=== PATIENT | male | born 1965 | race Caucasian/White ===

== ENCOUNTER 2019-11-27 06:57 | Day surgery (SDC) | payer OTHER ==
[~2019-11-27] VITALS: Ht 165.1 cm; Wt 82.1 kg
[~2019-11-27 06:57] MED LIST: LIPI20TA PO; NS 1,000 ML IV ONE
[2019-11-27] MEDS ORDERED: SIMETHICONE 40MG/0.6ML DROPS 30ML As Ordered ONE (07:09)
[2019-11-27] MEDS ORDERED: propofoL 500 MG/50 ML VIAL As Ordered ONE (07:39)
[2019-11-27] MEDS ORDERED: LIDOCAINE 2% INJ 100 MG/5 ML SDV (FOR ANES.) As Ordered ONE (07:39)
[2019-11-27] MEDS ORDERED: fentaNYL 100 MCG/2 ML INJECTION (J3010) As Ordered ONE (07:39)
--- NOTE | 2019-11-27 07:55 | ROOR ---
Patient Name: Kaden Brownlee Procedure Date: 11/27/2019 7:39 AM Date of : 1965 Age: 54 Room: [facility] Gender: Male Note Status: Finalized Procedure: Upper Endoscopy + Biopsies Indications: Iron deficiency anemia, Unexplained iron deficiency anemia Providers: Joshua Hooper MD Referring MD: WINNIE ZHOU MD Requesting Provider: Medicines: Monitored Anesthesia Care Complications: No immediate complications. Procedure: Pre-Anesthesia Assessment: - The heart rate, respiratory rate, oxygen saturations, blood pressure, adequacy of pulmonary ventilation, and response to care were monitored throughout the procedure. The Endoscope was introduced through the mouth, and advanced to the second part of duodenum. The upper GI endoscopy was accomplished without difficulty. The patient tolerated the procedure well. Findings: The Z-line was variable and was found 40 cm from the incisors. Multiple biopsies were obtained with cold forceps for evaluation to rule out Joseph's Esophagus randomly at the gastroesophageal junction. A small hiatal hernia was present. No other significant abnormalities were identified in a careful examination of the stomach. Biopsies were taken with a cold forceps in the gastric antrum for Helicobacter pylori testing. The exam of the duodenum was otherwise normal. Biopsies for histology were taken with a cold forceps in the first portion of the duodenum for evaluation of celiac disease. The exam was otherwise without abnormality. Impression: - Z-line variable, 40 cm from the incisors. - Small hiatal hernia. - The examination was otherwise normal. - Multiple biopsies were obtained at the gastroesophageal junction. - Biopsies were taken with a cold forceps for Helicobacter pylori testing. - Biopsies were taken with a cold forceps for evaluation of celiac disease. - The examination was otherwise normal. Recommendation: - Patient has a contact number available for emergencies. The signs and symptoms of potential delayed complications were discussed with the patient. Return to normal activities tomorrow. Written discharge instructions were provided to the patient. - Resume previous diet. - Discharge patient to home. - Continue present medications. - Await pathology results. - Telephone GI clinic for pathology results in 1 week. - Return to referring physician. - The findings and recommendations were discussed with the patient's family. Joshua Hooper MD Joshua Hooper MD 11/27/2019 7:54:38 AM Electronically signed by Joshua Hooper MD Number of Addenda: 0 Note Initiated On: 11/27/2019 7:39 AM Estimated Blood Loss: Estimated blood loss: none.
--- NOTE | 2019-11-27 08:07 | ROOR ---
Patient Name: Kaden Brownlee Procedure Date: 11/27/2019 7:40 AM Date of : 1965 Age: 54 Room: [facility] Gender: Male Note Status: Finalized Procedure: Total Colonoscopy to Cecum Indications: Iron deficiency anemia Providers: Joshua Hooper MD Referring MD: WINNIE ZHOU MD Requesting Provider: Medicines: Monitored Anesthesia Care Complications: No immediate complications. Procedure: Pre-Anesthesia Assessment: - The heart rate, respiratory rate, oxygen saturations, blood pressure, adequacy of pulmonary ventilation, and response to care were monitored throughout the procedure. The Colonoscope was introduced through the anus and advanced to the cecum, identified by appendiceal orifice and ileocecal valve. The colonoscopy was performed without difficulty. The patient tolerated the procedure well. The quality of the bowel preparation was excellent. Findings: The perianal and digital rectal examinations were normal. Non-bleeding internal hemorrhoids were found during retroflexion. The hemorrhoids were Grade I (internal hemorrhoids that do not prolapse). No other significant abnormalities were identified in a careful examination of the remainder of the colon. The exam was otherwise without abnormality on direct and retroflexion views. Impression: - Non-bleeding internal hemorrhoids. - The examination was otherwise normal on direct and retroflexion views. - No specimens collected. - The exam was otherwise normal to the cecum. Recommendation: - Patient has a contact number available for emergencies. The signs and symptoms of potential delayed complications were discussed with the patient. Return to normal activities tomorrow. Written discharge instructions were provided to the patient. - High fiber diet. - Discharge patient to home. - Continue present medications. - Repeat colonoscopy in 10 years for screening purposes. - Return to referring physician. - The findings and recommendations were discussed with the patient's family. Joshua Hooper MD Joshua Hooper MD 11/27/2019 8:07:05 AM Electronically signed by Joshua Hooper MD Number of Addenda: 0 Note Initiated On: 11/27/2019 7:40 AM Estimated Blood Loss: Estimated blood loss: none.
[2019-11-27 08:40] VITALS: BP 128/81
== END 2019-11-27 08:50 | disposition home or self-care (01) ==
LOC: M OPP 06:57
PROVIDERS: ATTEND Internal Medicine Gastroenterology
DX: K64.0 First degree hemorrhoids (principal); D50.9 Iron deficiency anemia, unspecified; K22.8 Other specified diseases of esophagus; K44.9 Diaphragmatic hernia without obstruction or gangrene; Z79.899 Other long term (current) drug therapy
CPT/HCPCS: 43239; 45378; 88305; J3010

== ENCOUNTER → 2020-07-23 | Outpatient (CLI) | payer OTHER ==
[~2020-07-23] MED LIST changes: +ATIV1TAB10 PO; +BACT800T5 PO; +CIPR-249 PO; +FERR325T3 PO; -NS 1,000 ML IV ONE; +PROT1TAB2 PO
--- NOTE | 2020-07-23 14:26 | RADONC.CN ---
Radiation Oncology Hx/Consult Radiation Oncology Consult Date of Service: Jul 23, 2020 Pt Identifier Kaden Brownlee is a 55 year old male with recently diagnosed favorable intermediate risk prostate cancer, T1c [place] 3+4 (in 3/12 cores) PSA 5. He is seen today for consideration of RT. Diagnosis/Treatment History Oncologic History Served in [employer], now retired. Followed by Dr. Dalal for rising PSA: June 2017 1.14 June 2018 3.14 February 2019 3.11 Mar 2020 5.0 Underwent biopsy on 07/01/20 Right mid 3+4=7 1 core Right lateral mid 3+4=7 1 core Right apex 3+4=7 1 core 3/12 cores positive Patient has consulted surgeon at [facility] RE: RALP IPSS 3 ALYSE 23 Interval History Feels well overall. Served >20 years in [employer]. 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 Only medication is statin for HPL. Feels well with no urinary symptoms. No ED. Has hemorrhoids which are not bothersome. Bowel habits normal, daily soft stools. No pain. Retired, . No family history of prostate cancer, BPH does run in the family. Several male relatives with TURP. Past Medical History: HPL ROSENDO Past Surgical History: None Family History: No history of cancer Social History: Non-smoker Occasional alcohol use No recreational drug use Allergies / Meds Allergies: Coded Allergies: No Known Allergies (Unverified , 11/20/19) Home Meds Reported Medications Atorvastatin Calcium (Lipitor) 20 Mg Tablet, 40 MG PO DAILY, TAB 11/20/19 Review of Systems General: Reports: Normal Appetite Constitutional: Denies: Chills, Fever, Night Sweats Eyes: Denies: Pain, Vision change HEENT: Denies: Head Aches, Dysphagia, Sore Throat Skin: Denies: Rash, Lesions, Bruising Pulmonary: Denies: Dyspnea, Cough Cardiovascular: Denies: Chest Pain, Palpitations, Edema Gastrointestinal: Denies: Nausea, Vomiting, Abdominal Pain, Diarrhea, Hematochezia Genitourinary: Denies: Dysuria, Frequency, Incontinence Hematologic: Denies: Bruising, Petecchia, Enlarged Lymph Nodes Musculoskeletal: Denies: Neck pain, Back pain Neurological: Denies: Weakness, Numbness, Incoordination Psych: Reports: Mood Normal; Denies: Memory Issues, Thoughts of Self Harm Vital Signs Ht 65" Wt 183lb T 97.8 P 76 RR 18 BP 114/75 O2 99% Pain 0 Fatigue 1 General Exam: Positive: Alert, Cooperative, No Acute Distress Eye Exam: Positive: PERRLA, EOMI ENT EXAM: Positive: Mucous membr. moist/pink, Pharynx Normal Neck Exam: Negative: Thyromegaly, Lymphadenopathy Chest Exam: Positive: Normal air movement; Negative: Rales, Rhonchi, Wheezing Heart Exam: Positive: Rate Normal, Regular Rhythm Abdomen Exam: Positive: Soft; Negative: Tenderness, Mass Male Exam: Positive: Normal Genital Exam, Lesions, Normal Prostate (Prostate flat small 2+), Normal Sphincter Tone; Negative: Edema Extremity Exam: Negative: Edema, Tenderness Skin Exam: Positive: Nl turgor and temperature; Negative: Rash Neuro Exam: Positive: Normal Gait, Normal Speech, Cranial Nerves 3-12 NL Psych Exam: Positive: Mental status NL, Mood NL, Memory Intact Diagnostic and Laboratory Diagnostic Review Radiologic images, relevant labs and pathology reports were personally reviewed and discussed with Mr. Brownlee. Assessment and Plan Impression Mr. Brownlee is a 55 year old male with recently diagnosed favorable intermediate risk prostate cancer, T1c [place] 3+4 (in 3/12 cores) PSA 5. He is seen today for consideration of RT. Stage T1c [place] 3+4 (in 3/12 cores) PSA 5 Favorable intermediate risk Performance Status ECOG 0 Plan We had an extensive discussion with Mr. Brownlee regarding the diagnosis at hand and available therapeutic options. He favors treatment over active surveillance in this case, which is most reasonable given his excellent health overall and long life expectancy. He has discussed surgery at the [facility] and is aware of its side effects. We reviewed that RT has equivalent intermediate oncologic outcomes to surgery but a different toxicity profile, irritative voiding symptoms and rectal toxicity are more common with RT than surgery. RT has less effect on continence and less immediate effect on sexual function than surgery. We also discussed the remote chance of a second malignancy later on with RT. As he has a great performance status and no significant baseline urinary symptoms, in addition to favorable intermediate risk disease and a small gland on my exam, I think he would be an excellent candidate for SBRT with a SpaceOAR to reduce the risk of acute and late rectal toxicity. I would give 36.25 Gy in 5 daily fractions with VMAT planning. I would place fiducial markers at the time of SpaceOAR implant approximately 1 week prior to simulation. The alternative of moderately hypofractionated RT with or without SpaceOAR was also discussed. He is leaning toward SBRT. We discussed the logistics of receiving radiation therapy in detail including the need for a 1-time planning session. After discussing the risks, benefits and alternatives to radiation therapy, Mr. Brownlee was amenable to considering radiotherapy. All questions were answered to the patient's satisfaction. He would like to think it over and will let us know what he ultimately chooses. We instructed the patient that if there were any questions,concerns or changes in clinical status in the interim to contact us. Recommendations SBRT 36.25 Gy in 5 fractions with SpaceOAR/fiducials versus RALP Patient to decide and alert us if he wishes to proceed with RT DECLAN BUSCH MD Jul 23, 2020 14:26
== END ==
LOC: M ONCR 13:01
PROVIDERS: ATTEND General Practice
DX: C61 Malignant neoplasm of prostate (principal)

== ENCOUNTER → 2020-08-30 | Outpatient (CLI) | payer OTHER ==
[~2020-08-30] MED LIST changes: +LIDOCAINE 2% MDV 20ML VIAL As Ordered ONE; +LIDOCAINE 2% MDV 20ML VIAL XX ONE; +LIDOCAINE VISCOUS 2% SOLN 15ML UDC TOP ONE
--- NOTE | 2020-08-30 13:03 | ROOPDOC ---
[facility] Report Of Operation Report of Operation [facility] Radiation Oncology SpaceOAR & fiducial marker procedure note Name: Kaden Brownlee JelaniB: 61 Procedure diagnosis: C61.0 Prostate cancer Procedure date/time: 08/30/20 1100 Physician: Declan Busch MD Implant(s): Fiducials (2 seeds per needle): Qfix [id number] Lot# [id number] Exp 04/07/2024 Qty 2 SpaceOAR: [id number] Lot# [id number] Exp 03/27/22 Qty 1 Description of procedure: Informed consent for placement of SpaceOAR and fiducial marker seeds (4) was obtained pre-procedure. A timeout was completed. The patient was placed in the high lithotomy position and a rectal exam with 2% viscous lidocaine was completed. The rectal vault was empty of stool. A chlorhexidine prep of the perineal skin was completed. The trans-rectal ultrasound probe was introduced, the prostate and the rectal bulb were well visualized. 2% lidocaine was infiltrated in the skin and soft tissues of the perineum via a 23 Ga spinal needle under ultrasound guidance. 8cc of local was used. Patient tolerated the block well. Next, fiducial marker seeds were placed via pre-loaded 18 Ga needles under ultrasound guidance. 2 seeds were placed in the left anterior base and apex, respectively. 2 seeds were placed at the right posterior base and apex, respectively. A hydro-dissection of the space between the prostate and rectum was conducted by locating Denonvilliers fascia and injecting 10 cc of isotonic saline through an 18 Ga needle into the potential space there to develop a plane for SpaceOAR implant. Once the hydro-dissection was complete, the needle was withdrawn to mid-gland and 2 cc of 2% lidocaine were injected into the space. The implant needle was then checked in the sagittal and transverse planes for optimal position and once verified, the SpaceOAR implant was placed. The implant was noted to have excellent positioning from base to near-apex. The needle was withdrawn and the ultrasound probe was removed from the rectum. Post procedure vital signs were WNL. The patient tolerated the procedure well without significant discomfort. EBL: <1cc Disposition: Simulation for radiation therapy will occur within the next 5-7 days The patient will complete antibiotic prophylaxis this evening DECLAN BUSCH MD Aug 30, 2020 13:03
== END ==
LOC: M ONCR 11:19
PROVIDERS: ATTEND General Practice
DX: C61 Malignant neoplasm of prostate (principal)

== ENCOUNTER → 2020-10-07 | Outpatient (RCR) | payer OTHER ==
[~2020-10-07] MED LIST changes: -LIDOCAINE 2% MDV 20ML VIAL As Ordered ONE; -LIDOCAINE 2% MDV 20ML VIAL XX ONE; -LIDOCAINE VISCOUS 2% SOLN 15ML UDC TOP ONE
== END ==
LOC: M ONCR 09-09 13:37
PROVIDERS: ATTEND General Practice
DX: C61 Malignant neoplasm of prostate (principal)

== ENCOUNTER 2020-10-11 11:28 | Outpatient (RCR) | payer OTHER | END 2020-11-07 | LOC: M ONCR 11:28 | PROVIDERS: ATTEND General Practice | DX: C61 Malignant neoplasm of prostate (principal) ==

== ENCOUNTER → 2021-01-15 | Outpatient (CLI) | payer OTHER ==
--- NOTE | 2021-01-15 13:06 | RADONC ---
Radiation Oncology Hx/FUP Radiation Oncology Hx/FUP Date of Service: Jan 15, 2021 Pt Identifier Kaden Brownlee is a 55 year old male with a history of favorable intermediate risk prostate cancer, T1c [place] 3+4 (in 3/12 cores) PSA 5. He underwent SpaceOAR/fiducial placement on 08/30/20. He completed SBRT 36.25 Gy in 5 fractions on 10/11/20. He is seen today for follow up. Diagnosis/Treatment History Oncologic History Served in [employer], now retired. Followed by Dr. Dalal for rising PSA: Underwent biopsy on 07/01/20 Right mid 3+4=7 1 core Right lateral mid 3+4=7 1 core Right apex 3+4=7 1 core 3/12 cores positive Patient has consulted surgeon at [facility] RE: RALP elected to pursue RT 08/30/20: SpaceOAR and fiducial marker placement 10/11/20 Completed SBRT 36.25 Gy in 5 fractions with VMAT (tx start was delayed due to COVID quarantine) PSA history June 2017 1.14 June 2018 3.14 February 2019 3.11 Mar 2020 5.0 (pre RT) January 2021 2.7 (post RT) Interval History Kaden his here with his . He feels entirely well. He notes that he had increased urinary frequency for ~ 3 weeks post SBRT which then resolved. He has no concern with continence, urgency, nocturia or weak stream today. Feels his urination is at pre-RT baseline. He had some minor rectal bleeding post SpaceOAR placement which resolved spontaneously. Has normal BMs now q1-2 days without bleeding. No erectile function concerns today. Current Therapy Surveillance Stage T1c [place] 3+4 (in 3/12 cores) PSA 5 Favorable intermediate risk Social History: Non-smoker Occasional alcohol use Allergies / Meds Allergies: Coded Allergies: No Known Allergies (Unverified , 11/20/19) Home Meds Reported Medications Pantoprazole Sodium (Protonix) 40 Mg Tablet.dr, 40 MG PO DAILY for 30 Days, #30 TAB 07/25/20 Atorvastatin Calcium (Lipitor) 20 Mg Tablet, 40 MG PO DAILY, TAB 11/20/19 Discontinued Reported Medications Ferrous Sulfate (Ferrous Sulfate) 325 Mg Tablet., 1 TAB PO BID for 30 Days, #60 TAB 07/25/20 Discontinued Scripts Sulfamethoxazole/Trimethoprim (Bactrim Ds Tablet) 1 Each Tablet, 1 TAB PO BID for 1 Day, #2 TAB Take 1 tablet by mouth the morning of your procedure. Take the second tablet the evening of your procedure Prov:DECLAN BUSCH MD 08/29/20 Lorazepam (Ativan) 0.5 Mg Tablet, 1 TAB PO DAILYPRN PRN for anxiety MDD 1 Tablet(s) for 30 Days, #2 TAB Prov:DECLAN BUSCH MD 08/28/20 Review of Systems Review of Systems General: Reports: Normal Appetite; Denies: Fatigue Eyes: Denies: Pain HEENT: Denies: Head Aches Pulmonary: Denies: Dyspnea, Cough Cardiovascular: Denies: Chest Pain Gastrointestinal: Denies: Nausea, Abdominal Pain, Hematochezia Genitourinary: Denies: Dysuria, Frequency, Incontinence, Hematuria, Retention Hematologic: Denies: Bruising Neurological: Denies: Weakness, Numbness Psych: Reports: Mood Normal Physical Examination Vital Signs Wt 187 lbs T 98 P 76 RR 18 BP 145/78 O2 99% Pain 0 Fatigue 0 General Exam: Positive: Alert, Cooperative, No Acute Distress Eye Exam: Positive: PERRLA, EOMI ENT EXAM: Positive: Atraumatic Neck Exam: Positive: Supple Chest Exam: Positive: Clear to auscultation Heart Exam: Positive: Rate Normal Abdomen Exam: Positive: Normal bowel sounds, Soft Extremity Exam: Negative: Edema Skin Exam: Positive: Nl turgor and temperature Neuro Exam: Positive: Normal Gait, Normal Speech, Cranial Nerves 3-12 NL Psych Exam: Positive: Mental status NL Diagnostic and Laboratory Diagnostic Review Radiologic images, relevant labs and pathology reports were personally reviewed and discussed with Mr. Brownlee. Assessment and Plan Impression Assessment Mr. Brownlee is a 55 year old male with a history of favorable intermediate risk prostate cancer, T1c [place] 3+4 (in 3/12 cores) PSA 5. He underwent SpaceOAR/fiducial placement on 08/30/20. He completed SBRT 36.25 Gy in 5 fractions on 10/11/20. He is seen today for follow up. He is doing well, he had the expected mild irritative voiding symptoms immediately post-SBRT which resolved spontaneously. He has a good PSA response, 2.7 currently from 5 pre-treatment. Given this we can check PSA again in 6 months time. He knows to call with any questions or problems should they arise. Performance Status ECOG 0 Plan Follow up in 6 months with PSA Mr. Brownlee was encouraged to call with questions or concerns in the interim period. Billing Statement Total time of [21] minutes was spent preparing for the visit [1], obtaining HPI [4], examining the patient [2], reviewing diagnostic tests [1], discussing management options [4], coordinating care [1], and writing this note [8]. DECLAN BUSCH MD Jan 15, 2021 12:57
== END ==
LOC: M ONCR 10:35
PROVIDERS: ATTEND General Practice
DX: C61 Malignant neoplasm of prostate (principal)

== ENCOUNTER → 2021-07-16 | Outpatient (CLI) | payer OTHER ==
--- NOTE | 2021-07-16 11:17 | RADONC ---
Radiation Oncology Hx/FUP Radiation Oncology Hx/FUP Date of Service: Jul 16, 2021 Pt Identifier Kaden Brownlee is a 56 year old male history of favorable intermediate risk prostate cancer, T1c Corinne 3+4 (in 3/12 cores) PSA 5. He underwent SpaceOAR/fiducial placement on 08/30/20. He completed SBRT 36.25 Gy in 5 fractions on 10/11/20. He is seen today for follow up. Diagnosis/Treatment History Oncologic History Served in [employer], now retired. Followed by Dr. Dalal for rising PSA: Underwent biopsy on 07/01/20 Right mid 3+4=7 1 core Right lateral mid 3+4=7 1 core Right apex 3+4=7 1 core 3/12 cores positive Patient has consulted surgeon at [facility] RE: RALP elected to pursue RT 08/30/20: SpaceOAR and fiducial marker placement 10/11/20 Completed SBRT 36.25 Gy in 5 fractions with VMAT (tx start was delayed due to COVID quarantine) PSA history June 2017 1.14 June 2018 3.14 February 2019 3.11 Mar 2020 5.0 (pre RT) January 2021 2.7 (post RT) 06/30/21 1.0 Interval History Kaden feels entirely well. Recently returned from [place]. Had a solitary episode of diarrhea with rectal bleeding in March, no issues since. He had some discomfort with ejaculation which he attributes to his soap and dehydration, this has improved in recent weeks since he changed his hygiene practice and has been drinking more fluids. No dysuria, no nocturia. Some daytime frequency increase since treatment but not bothersome. Good stream and complete emptying. Current Therapy Surveillance Stage T1c Corinne 3+4 (in 3/12 cores) PSA 5 Favorable intermediate risk Social History: Non-smoker Occasional alcohol use Allergies / Meds Allergies: Coded Allergies: No Known Allergies (Unverified , 11/20/19) Home Meds Reported Medications Pantoprazole Sodium (Protonix) 40 Mg Tablet.dr, 40 MG PO DAILY for 30 Days, #30 TAB 07/25/20 Atorvastatin Calcium (Lipitor) 20 Mg Tablet, 40 MG PO DAILY, TAB 11/20/19 Review of Systems Review of Systems Constitutional: Denies: Fatigue Eyes: Denies: Pain HEENT: Denies: Head Aches Pulmonary: Denies: Cough Cardiovascular: Denies: Chest Pain Gastrointestinal: Denies: Abdominal Pain, Diarrhea, Hematochezia Genitourinary: Denies: Dysuria, Frequency, Hematuria Hematologic: Denies: Bruising Neurological: Denies: Weakness, Numbness Psych: Reports: Mood Normal Physical Examination Vital Signs Wt 192 lbs T 98.6 P 84 RR 18 BP 129/83 O2 97% Pain 0 Fatigue 0 General Exam: Alert, Cooperative, No Acute Distress Eye Exam: PERRLA, EOMI ENT EXAM: Atraumatic Neck Exam: Supple Chest Exam: Clear to auscultation Heart Exam: Rate Normal Abdomen Exam: Soft Male Exam: Normal Prostate (Deferred , declining PSA) Extremity Exam: Negative: Edema Skin Exam: Nl turgor and temperature Neuro Exam: Normal Gait, Normal Speech, Cranial Nerves 3-12 NL Psych Exam: Mental status NL Diagnostic and Laboratory Diagnostic Review Radiologic images, relevant labs and pathology reports were personally reviewed and discussed with Mr. Brownlee. Assessment and Plan Impression Assessment Mr. Brownlee is a 56 year old male with a history of favorable intermediate risk prostate cancer, T1c [place] 3+4 (in 3/12 cores) PSA 5. He underwent SpaceOAR/fiducial placement on 08/30/20. He completed SBRT 36.25 Gy in 5 fractions on 10/11/20. He is seen today for follow up. Doing well, continued PSA response, now 1.0. Discussed this may continue to decline from this point or stabilize, both would be acceptable outcomes. He has no urinary, bowel, or sexual concerns today. Will see again in 6 months with PSA. Performance Status ECOG 0 Plan 6 months with PSA Mr. Brownlee was encouraged to call with questions or concerns in the interim period. Billing Statement Total time of [23] minutes was spent preparing for the visit [1], obtaining HPI [4], examining the patient [2], reviewing diagnostic tests [2], discussing management options [5], coordinating care [2], and writing this note [7]. DECLAN BUSCH MD Jul 16, 2021 11:17
== END ==
LOC: M ONCR 10:05
PROVIDERS: ATTEND General Practice
DX: C61 Malignant neoplasm of prostate (principal); Z92.3 Personal history of irradiation

== ENCOUNTER 2021-09-05 13:22 | Outpatient (RCR) | payer OTHER ==
[2021-09-05 13:55] LABS: APPEARANCE, URINE CLEAR (CLEAR); BILIRUBIN, URINE AUTO NEGATIVE (NEGATIVE); BLOOD, URINE BLOOD NEGATIVE (NEGATIVE); COLOR, URINE YELLOW (YELLOW); GLUCOSE, URINE (UA) AUTO NEGATIVE (NEGATIVE); KETONE, URINE AUTO NEGATIVE (NEGATIVE); LEUKOCYTE ESTERASE, URINE AUTO NEGATIVE (NEGATIVE); NITRITE, URINE AUTO NEGATIVE (NEGATIVE); PROTEIN, URINE AUTO NEGATIVE (NEGATIVE); SPECIFIC GRAVITY URINE AUTO 1.012 (1.002-1.035); UROBILINOGEN, URINE AUTO 0.2 mg/dL (0.0-2.0); WBC, URINE AUTO 1 /HPF (0-3)
[2021-09-05 13:56] LABS: BACTERIA, URINE AUTO NEGATIVE (NEGATIVE); MUCUS, URINE SMALL (NEGATIVE); RBC, URINE AUTO 3 /HPF (0-3); SQUAMOUS EPITHELIAL CELL UR AU 0 /HPF (0-6)
== END 2021-09-07 ==
LOC: M ONCR 13:22
PROVIDERS: ATTEND General Practice
DX: C61 Malignant neoplasm of prostate (principal); Z79.899 Other long term (current) drug therapy; Z92.3 Personal history of irradiation

== ENCOUNTER → 2022-01-14 | Outpatient (CLI) | payer OTHER ==
[~2022-01-14] MED LIST changes: +CIAL5TAB PO
== END ==
LOC: M ONCR 10:53
PROVIDERS: ATTEND General Practice
DX: C61 Malignant neoplasm of prostate (principal); N52.9 Male erectile dysfunction, unspecified; R35.0 Frequency of micturition; Z92.3 Personal history of irradiation

== ENCOUNTER → 2023-01-14 | Outpatient (CLI) | payer OTHER | LOC: M ONCR 10:46 | PROVIDERS: ATTEND General Practice | DX: C61 Malignant neoplasm of prostate (principal); Z79.899 Other long term (current) drug therapy; Z92.3 Personal history of irradiation ==

== ENCOUNTER → 2023-10-08 | Outpatient (CLI) | payer OTHER | LOC: M SOG 15:14 | PROVIDERS: ATTEND Orthopaedic Surgery | DX: M25.561 Pain in right knee (principal) ==

== ENCOUNTER → 2024-01-14 | Outpatient (CLI) | payer OTHER | LOC: M ONCR 10:23 | PROVIDERS: ATTEND General Practice | DX: C61 Malignant neoplasm of prostate (principal); Z71.2 Person consulting for explanation of examination or test findings; Z79.899 Other long term (current) drug therapy; Z86.16 Personal history of COVID-19; Z92.3 Personal history of irradiation ==

== ENCOUNTER → 2024-08-08 | Outpatient (CLI) | payer OTHER ==
[~2024-08-08] MED LIST changes: +ISOVUE-370 76% 100ML VIAL As Ordered ONE
== END ==
LOC: M RAD 07:40
PROVIDERS: ATTEND Student in an Organized Health Care Education/Training Program
DX: H55.09 Other forms of nystagmus (principal); I65.21 Occlusion and stenosis of right carotid artery
CPT/HCPCS: 70498; Q9967

== ENCOUNTER → 2025-01-17 | Outpatient (CLI) | payer OTHER ==
[~2025-01-17] MED LIST changes: -ISOVUE-370 76% 100ML VIAL As Ordered ONE
== END ==
LOC: M ONCR 10:43
PROVIDERS: ATTEND General Practice
DX: C61 Malignant neoplasm of prostate (principal); N52.9 Male erectile dysfunction, unspecified; Z92.3 Personal history of irradiation; Z79.899 Other long term (current) drug therapy